=== PATIENT | female | born 1980 | race Caucasian/White ===

== ENCOUNTER 2016-11-20 11:34 | Emergency (ER) | payer MEDICAID, OTHER ==
[~2016-11-20] VITALS: Wt 132.0 kg
[~2016-11-20 11:34] MED LIST: CEPH-443 PO
[2016-11-20] MEDS ORDERED: LACTATED RINGER'S 1,000 ML IV STA (11:49)
[2016-11-20] MEDS ORDERED: SOD CHLORIDE 0.9% 2,000 ML IV STA (11:49)
[2016-11-20 12:27] LABS: ADD SCAN DIFF NO
[2016-11-20 12:29] LABS: BASOPHILS % 0.4 % (0.0-2.0); EOSINOPHILS # 0.1 10^3/ul (0.0-0.5); EOSINOPHILS % 1.2 % (0.0-7.0); HEMATOCRIT 43.3 % (37.0-47.0); HEMOGLOBIN 14.2 g/dl (12.0-16.0); LYMPHOCYTES % 31.4 % (15.0-51.0); MEAN CORPUSCULAR HEMOGLOBIN 30.3 pg (29.0-33.0); MEAN CORPUSCULAR HGB CONC 32.8 g/dl (32.0-37.0); MEAN CORPUSCULAR VOLUME 92.5 fl (82.0-101.0); MEAN PLATELET VOLUME 9.8 fl (7.4-10.4); MONOCYTE # 0.5 10^3/ul (0.3-0.9); MONOCYTES % 5.2 % (0.0-11.0); NEUTROPHIL # 5.8 10^3/ul (1.6-7.5); NEUTROPHILS % 61.3 % (39.0-77.0); PLATELET COUNT 363 10^3/UL (140-415); RED BLOOD COUNT 4.68 10^6/ul (4.20-5.40); RED CELL DISTRIBUTION WIDTH 12.3 % (11.5-14.5); WHITE BLOOD COUNT 9.5 10^3/ul (4.8-10.8)
[2016-11-20 12:45] LABS: POTASSIUM 4.1 mmol/L (3.5-5.1)
[2016-11-20 12:47] LABS: ADD UMIC YES; URINE BILIRUBIN (Dip) NEGATIVE (NEGATIVE); URINE BLOOD (Dip) NEGATIVE (NEGATIVE); URINE COLOR LT. YELLOW (YELLOW); URINE KETONES (Dip) NEGATIVE (NEGATIVE); URINE LEUKOCYTE ESTERASE (Dip) NEGATIVE (NEGATIVE); URINE NITRITE (Dip) NEGATIVE (NEGATIVE); URINE TOTAL PROTEIN (Dip) TRACE (NEGATIVE); URINE UROBILINOGEN (Dip) 0.2 E.U./dL (0.1-1.0)
[2016-11-20 12:48] LABS: CREATININE 0.58 mg/dl (0.44-1.00)
[2016-11-20 12:49] LABS: CALCIUM 9.2 mg/dl (8.4-10.2)
[2016-11-20] MEDS ORDERED: ACETAMINOPHEN 325 MG TAB PO ONE (13:00)
[2016-11-20] MEDS ORDERED: METF500T4 PO (13:00)
[2016-11-20 13:10] VITALS: BP 128/76; PULSE 78; RESP 0
[2016-11-20 13:25] LABS: BACTERIA,URINE FEW; URINE RBCS 0-2 /HPF (0)
--- NOTE | 2016-11-20 15:09 | ERD ---
ER Documentation Chief Complaint Date/Time DATE: 11/20/16 TIME: 15:07 Chief Complaint blood glucose of 265mg/dl, headache/fatigue/frequent urination HPI Patient is a 36-year-old female who had gestational diabetes who presents with high blood sugar. The [facility] for a blood sugar of 450. The patient says that she has been urinating frequently and has headache and blurry vision. She also has bilateral leg pain and feels thirsty. The symptoms have been there for 1 week. She denies fevers. Upon review of old medical records this is the patient's 11th visit to the ER since 2010. ROS All systems reviewed and are negative except as per history of present illness. Medications Home Meds Active Scripts Metformin* (Glucophage*) 500 Mg Tab, 500 MG PO BID, #60 TAB Prov:SONNY LYON MD 11/20/16 Discontinued Scripts Cephalexin* (Keflex*) 500 Mg Capsule, 500 MG PO QID for 7 Days, CAP Prov:JARAD LEACH PA-C 11/27/15 Allergies Allergies: Coded Allergies: No Known Drug Allergy (Verified Allergy, Mild, 11/20/16) PMhx/Soc History of Surgery: Yes ( 11/11) Anesthesia Reaction: No Hx Neurological Disorder: No Hx Respiratory Disorders: No Hx Cardiac Disorders: No Hx Psychiatric Problems: No Hx Miscellaneous Medical Probl: Yes (GESTATIONAL DM ) Hx Alcohol Use: No Hx Substance Use: No Hx Tobacco Use: No Smoking Status: Never smoker FmHx Family History: diabetes Physical Exam Vitals Vital Signs Date Time Temp Pulse Resp B/P Pulse Ox O2 Delivery O2 Flow Rate FiO2 11/20/16 13:10 78 0 128/76 99 Room Air 11/20/16 11:41 98.8 75 20 136/85 97 Physical Exam Const: No acute distress Head: Atraumatic Eyes: Normal Conjunctiva ENT: Normal External Ears, Nose and Mouth. Neck: Full range of motion..~ No meningismus. Resp: Clear to auscultation bilaterally Cardio: Regular rate and rhythm, no murmurs Abd: Soft, non tender, non distended. Normal bowel sounds Skin: No petechiae or rashes Back: No midline or flank tenderness Ext: No cyanosis, or edema Neur: Awake and alert Psych: Normal Mood and Affect Result Diagram: 11/20/16 1205 11/20/16 1205 Results 24 hrs Laboratory Tests Test 11/20/16 11:39 11/20/16 12:05 11/20/16 12:15 11/20/16 12:45 Bedside Glucose 265mg/dL 248mg/dL White Blood Count 9.510^3/ul Red Blood Count 4.6810^6/ul Hemoglobin 14.2g/dl Hematocrit 43.3% Mean Corpuscular Volume 92.5fl Mean Corpuscular Hemoglobin 30.3pg Mean Corpuscular Hemoglobin Concent 32.8g/dl Red Cell Distribution Width 12.3% Platelet Count 64800^3/UL Mean Platelet Volume 9.8fl Neutrophils % 61.3% Lymphocytes % 31.4% Monocytes % 5.2% Eosinophils % 1.2% Basophils % 0.4% Nucleated Red Blood Cells % 0.0/100WBC Neutrophils # 5.810^3/ul Lymphocytes # 3.010^3/ul Monocytes # 0.510^3/ul Eosinophils # 0.110^3/ul Basophils # 0.010^3/ul Nucleated Red Blood Cells # 0.010^3/ul Sodium Level 136mmol/L Potassium Level 4.1mmol/L Chloride Level 96mmol/L Carbon Dioxide Level 27mmol/L Anion Gap 17 Blood Urea Nitrogen 12mg/dl Creatinine 0.58mg/dl Glucose Level 305mg/dl Lactic Acid Level 1.2mmol/L Calcium Level 9.2mg/dl Urine Color LT. YELLOW Urine Clarity CLEAR Urine pH 6.[address] [place] 1.015 Urine Ketones NEGATIVE Urine Nitrite NEGATIVE Urine Bilirubin NEGATIVE Urine Urobilinogen 0.2 E.U./dL Urine Leukocyte Esterase NEGATIVE Urine Microscopic RBC 0-2/HPF Urine Microscopic WBC 0-2/HPF Urine Epithelial Cells FEW Urine Bacteria FEW Urine Hemoglobin NEGATIVE Urine Glucose 0.1%% Urine Total Protein TRACE Current Medications Medications (Trade) Dose Ordered Sig/Leticia Route PRN Reason Start Time Stop Time Status Last Admin Dose Admin Sodium Chloride 2,000 ml @ 1,000 mls/hr Q2H STAT IV 11/20/16 11:49 11/20/16 13:11 DC 11/20/16 12:07 Lactated Ringer's (Lr) 1,000 ml @ 1,000 mls/hr Q1H STAT IV 11/20/16 11:49 11/20/16 12:48 DC 11/20/16 12:07 Acetaminophen (Tylenol Tab) 650 mg ONCE ONCE PO 11/20/16 13:00 11/20/16 13:10 DC Procedures/MDM test is negative. Patient is a 36-year-old female with previous gestational diabetes who presents with hyperglycemia. The patient does not have diabetic ketoacidosis and I believe outpatient management is appropriate. The patient will be started on metformin. However she will need to follow-up closely with her primary doctor within 24-48 hours for reevaluation. She can return for any worsening symptoms. I see no signs of sepsis or serious bacterial infection at this time. Departure Diagnosis: Primary Impression: Diabetes mellitus, new onset Additional Impression: Hyperglycemia Condition: Fair Patient Instructions: Hyperglycemia (High Blood Sugar) Additional Instructions: Llame al doctor MAANA y pedro jeff NITHIN PARA DENTRO DE 1-2 GAN.Dgale a la secretaria que nosotros le instruimos hacer esta nithin.Avise o llame si poon condicin se empeora antes de la nithin. Regresa aqui si peor o no mejor. SONNY LYON MD November 20, 2016 15:09
== END 2016-11-20 13:11 | disposition home or self-care (01) ==
LOC: E/R 11:34
DX: E11.65 Type 2 diabetes mellitus with hyperglycemia (principal)
CPT/HCPCS: 36415; 80048; 81001; 82962; 83605; 85025; J7030; J7120; Z7502

== ENCOUNTER 2017-12-16 23:26 | Outpatient (CLI) | END 2017-12-17 04:13 | disposition home or self-care (01) ==

== ENCOUNTER 2018-01-12 15:40 | Inpatient (IN) | END 2018-01-16 22:00 | disposition home or self-care (01) | DRG 781 ==

== ENCOUNTER 2018-01-20 07:50 | Inpatient (IN) | END 2018-01-23 18:57 | disposition home or self-care (01) | DRG 765 ==

== ENCOUNTER 2018-01-28 07:49 | Emergency (ER) | END 2018-01-28 11:27 | disposition home or self-care (01) ==

== ENCOUNTER 2018-10-16 12:33 | Emergency (ER) | payer OTHER ==
[~2018-10-16] VITALS: Ht 157.5 cm; Wt 120.0 kg
[~2018-10-16 12:33] MED LIST changes: -CEPH-443 PO; +NOVO3I SC; +NPH,100I5 SQ; +PREN-93 PO
[2018-10-16 12:40] VITALS: BP 157/72; PULSE 73; RESP 18; Ht 157.5 cm; Wt 120.0 kg
[2018-10-16] MEDS ORDERED: LIDOCAINE 1% (MDV) 20 ML INJ SC ONE (14:30)
[2018-10-16] MEDS ORDERED: IBUPROFEN 600 MG TAB PO ONE (15:00)
[2018-10-16] MEDS ORDERED: IBUP-1542 PO (15:18)
[2018-10-16] MEDS ORDERED: CLIN300C10 PO (15:18)
--- NOTE | 2018-10-16 16:59 | ERD ---
ER Documentation Chief Complaint Chief Complaint PT HAS BUMP IN VAGINA THAT IS GETTING BIGGER AND MORE PAINFUL X 1 WEEK HPI Patient is a 38-year-old female who presents the ER for concerns of a vaginal "bump". Patient states that the region is painful to touch. She states that the bump is growing in size. Patient denies any fevers or chills. Patient is a diabetic. Patient has never had swelling to the affected area in the past. Of note, patient is breast-feeding her daughter. ROS All systems reviewed and are negative except as per history of present illness. Medications Home Meds Active Scripts Ibuprofen* (Motrin*) 600 Mg Tab, 600 MG PO Q6, #30 TAB Prov:TOBI KRISHNAMURTHY PA-C 10/16/18 Clindamycin Hcl* (Clindamycin Hcl*) 300 Mg Capsule, 300 MG PO TID for 10 Days, CAP Prov:TOBI KRISHNAMURTHY PA-C 10/16/18 Reported Medications NPH, Human Insulin Isophane (Humulin N Kwikpen) 100 Unit/1 Ml Insuln.pen, 20 UNIT SQ AC BREAKFAST BEDTIME, EA 01/20/18 Insulin Aspart* (Novolog Insulin Pen*) 100 Unit/Ml Soln, 20 UNIT SC WITH BREAKFAST DINNE, EA 01/20/18 Vit No.124/Iron/FA ( Vitamin Tablet) 1 Each Tablet, 1 EACH PO DAILY, TAB 12/17/17 Allergies Allergies: Coded Allergies: No Known Drug Allergy (Verified Allergy, Mild, 10/16/18) PMhx/Soc History of Surgery: Yes ( 01/20/18) Anesthesia Reaction: No Hx Neurological Disorder: No Hx Respiratory Disorders: No Hx Cardiac Disorders: No Hx Psychiatric Problems: No Hx Miscellaneous Medical Probl: Yes ( DM ) Hx Alcohol Use: No Hx Substance Use: No Hx Tobacco Use: No Smoking Status: Never smoker FmHx Family History: No diabetes Physical Exam Vitals Vital Signs Date Temp Pulse Resp B/P (MAP) Pulse Ox O2 O2 Flow FiO2 Time Delivery Rate 10/16/18 98.6 73 18 157/72 8 12:40 (100) Physical Exam GENERAL: Well-developed, well-nourished female. Appears in no acute distress. HEAD: Normocephalic, atraumatic. EYES: Pupils are equally reactive bilaterally. EOMs grossly intact. No conju nctival erythema. ENT: Moist mucous membranes. No uvula deviation. No kissing tonsils. NECK: Supple. No meningismus. Normal range of motion of the neck. LUNG: Clear to auscultation bilaterally. No rhonchi, wheezing, rales or coarse breath sounds. HEART: Regular rate and rhythm. No murmurs, rubs or gallops. ABDOMEN: No scars, ecchymosis or rashes noted. Soft, nontender, and nondi stended. Positive bowel sounds in all four quadrants. No rebound tenderness, no guarding. (-) McBurney's point tenderness. No CVA tenderness. 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 4 cm round Bartholin gland abscess noted in the right labia. Area is fluctuant. Bartholin gland abscess noted EXTREMITIES: Equal pulses bilaterally. No peripheral clubbing, cyanosis or edema. No unilateral leg swelling. NEUROLOGIC: Alert and oriented. Moving all four extremities without any difficulty. Normal speech. Steady gait. SKIN: Normal color. Warm and dry. No rashes or lesions. Results 24 hrs Current Medications Medications Dose Sig/Leticia Start Time Status Last (Trade) Ordered Route PRN Stop Time Admin Dose Reason Admin Lidocaine 20 ml ONCE ONCE 10/16/18 DC (Xylocaine SC 14:30 1% (Mdv) 20 10/16/18 14:31 ml) Ibuprofen 600 mg ONCE ONCE 10/16/18 DC 10/16/18 (Motrin) PO 15:00 15:01 10/16/18 15:01 Procedures/MDM INCISION AND DRAINAGE: The patient was verbally consented prior to procedure. Patient was explained the risks, benefits and alternatives to this procedure. Location: Right labia, Bartholin gland abscess Abscess size: 4 cm Anesthesia: local 1% lidocaine, 5 cc Preparation: The area was prepped in a sterile fashion using betadine x3 cleanses. A sterile field was prepared. Technique: A sterile 11 blade scalpel was used to make a 1 cm linear incision into the abscess. Procedure: A midline abscess incision was made using a sterile scalpel in a linear fashion. Purulent material was expressed with direct pressure. Blunt probing was used to break up loculations. Bleeding was minimal. Purulent drainage was expressed from the abscess site however patient was not tolerating pain well. Patient asked that we stop procedure secondary to pain. The wound was dressed in sterile gauze. The patient was neurovascularly intact post- procedure. Post-procedural wound care was discussed with the patient. MEDICAL DECISION MAKING: Patient is a 38-year-old female presents ER for concerns of breath on gland abscess. Patient is a diabetic. Vital signs were reviewed. Patient is afebrile. Patient was not hypoxic. Incision and drainage was attempted however patient did not tolerate well secondary to pain and discomfort. Patient was advised to perform warm baths at home and return here in 2 days for recheck. Patient was started on clindamycin which is safe for breast-feeding. Low suspicion for deep space infection or sepsis. PRESCRIPTION: Clindamycin, Ibuprofen DISCHARGE: At this time, patient is stable for discharge and outpatient management. I have instructed the patient to follow-up with his/her primary care physician in 1-2 days. I have discussed with the patient the possibility of needing to see a specialist for further workup and imaging studies if symptoms persist. I have instructed the patient to promptly return to the ER for any new or worsening symptoms including increased pain, fever, nausea, vomiting, weakness or LOC. The patient and/or family expressed understanding of and agreement with this plan. All questions were answered. Home care instructions were provided. Disclaimer: Inadvertent spelling and grammatical errors are likely due to EHR/dictation software use and do not reflect on the overall quality of patient care. Also, please note that the electronic time recorded on this note does not necessarily reflect the actual time of the patient encounter. Departure Diagnosis: Primary Impression: Abscess of Bartholin's gland Condition: Fair Patient Instructions: Bartholin's Cyst (I And D) Additional Instructions: Regresar en dos mendez. Llame al doctor REGINA y pedro jeff NITHIN PARA DENTRO DE 1-2 MENDEZ.Dgale a la secretaria que nosotros le instruimos hacer esta nithin.Avise o llame si poon condicin se empeora antes de la nithin. Regresa aqui si peor o no mejor. TOBI KRISHNAMURTHY PA-C Oct 16, 2018 16:59
== END 2018-10-16 15:25 | disposition home or self-care (01) ==
LOC: FTE 12:33
DX: N75.1 Abscess of Bartholin's gland (principal); E11.9 Type 2 diabetes mellitus without complications; Z79.4 Long term (current) use of insulin
CPT/HCPCS: 56420; Z7502; Z7610